=== PATIENT | female | born 1965 | race Caucasian/White ===

== ENCOUNTER 2016-08-19 13:28 | Emergency (ER) | payer OTHER, SELFPAY ==
[2016-08-19 13:28] VITALS: BMI 26.4
[2016-08-19 13:38] VITALS: BP 116/67; PULSE 60; RESP 18; TEMP 98.6; O2SAT 100
--- NOTE | 2016-08-19 13:48 | ED PDOC ---
HPI: CCC, URI, Sore Throat Time Seen by Provider: 08/19/16 13:40 Chief Complaint (Provider): Sore throat History Per: Patient History/Exam Limitations: no limitations Have you had recent travel within the past 21 days to any of the following countries: [place], [place], [place] or [place]?: No Onset/Duration Of Symptoms: Days Current Symptoms Are (Timing): Still Present Location Of Pain: Throat Sick Contacts (Context): None Associated Symptoms: Cough, Sputum Additional History Per: Patient Additional Complaint(s): The pt is a 51yo female, presents to the ED for evaluation of persistent sore throat for the past 15 days. Pt reports sore throat with associated cough. Pt reports she initially had a fever which has now resolved. Reports she started taking Zithromax 3 days ago with some relief. Pt offers no additional medical complaints. Past Medical History Reviewed: Historical Data, Nursing Documentation, Vital Signs Vital Signs: Last Vital Signs Temp 98.6 F 08/19/16 13:38 Pulse 60 08/19/16 13:38 Resp 18 08/19/16 13:38 BP 116/67 08/19/16 13:38 Pulse Ox 100 08/19/16 13:51 - Medical History PMH: Depression, HTN (Untreated) Denies: Chronic Kidney Disease - Surgical History Surgical History: - Family History Family History: States: Unknown Family Hx - Living Arrangements Living Arrangements: With Family - Home Medications Home Medications: Ambulatory Orders Medication Instructions Recorded Benzonatate [Tessalon Perle] 100 mg PO Q8 PRN #14 capsule 08/19/16 Naproxen [Naprosyn] 500 mg PO BID PRN #30 tab 08/19/16 - Allergies Allergies/Adverse Reactions: Allergies Allergy/AdvReac Type Severity Reaction Status Date / Time No Known Allergies Allergy Verified 03/06/16 12:01 Review of Systems ROS Statement: Except As Marked, All Systems Reviewed And Found Negative Constitutional: Negative for: Fever ENT: Positive for: Throat Pain Respiratory: Positive for: Cough Physical Exam - Reviewed Nursing Documentation Reviewed: Yes Vital Signs Reviewed: Yes - Physical Exam Appears: Positive for: Well, Non-toxic, No Acute Distress Head Exam: Positive for: ATRAUMATIC, NORMAL INSPECTION, NORMOCEPHALIC Skin: Positive for: Normal Color, Dry. Negative for: Rash Eye Exam: Positive for: Normal appearance ENT: Positive for: Pharyngeal Erythema (mild), Other (able to swallow saliva; no trismus or drool noted.) Neck: Positive for: Normal Cardiovascular/Chest: Positive for: Regular Rate, Rhythm Respiratory: Positive for: Normal Breath Sounds. Negative for: Respiratory Distress Gastrointestinal/Abdominal: Positive for: Normal Exam, Soft. Negative for: Organomegaly Neurologic/Psych: Positive for: Alert, Oriented - ECG O2 Sat by Pulse Oximetry: 100 (RA) Pulse Ox Interpretation: Normal - Radiology X-Ray: Interpreted by Me (Neck for soft tissue x-ray) X-Ray Interpretation: Other (no epiglottitis) - Progress ED Course And Treament: Rapid strep: negative Monospot: negative. Medical Decision Making Medical Decision Making: Time: 1345 Impression: URI Plan: -- Rapid Strep -- Infectious Mononucleosis -- XR Soft Tissues of Neck Scribe Attestation: Documented by Enid Gaona acting as a scribe for MARY Garcias Provider Attestation: All medical record entries made by the Scribe were at my direction and personally dictated by me. I have reviewed the chart and agree that the record accurately reflects my personal performance of the history, physical exam, medical decision making, and the department course for this patient. I have also personally directed, reviewed, and agree with the discharge instructions and disposition. Disposition - Clinical Impression Clinical Impression: Viral syndrome - Patient ED Disposition Is Patient to be Admitted: No - Disposition Referrals: [facility] [Outside] Disposition: Routine/Home Disposition Time: 15:11 Condition: STABLE Additional Instructions: Warm salt water gargles. Drink plenty of fluids. Prescriptions: Benzonatate [Tessalon Perle] 100 mg PO Q8 PRN #14 capsule PRN Reason: Cough Naproxen [Naprosyn] 500 mg PO BID PRN #30 tab PRN Reason: Pain Instructions: Viral Syndrome (ED) Print Language: TURKISH
--- NOTE | 2016-08-19 14:51 | RAD ---
PROCEDURE: Radiographs of the neck (soft tissue). HISTORY: sore throat COMPARISON: None. TECHNIQUE: Frontal and Lateral Radiographs of the neck, optimized for soft tissue visualization. FINDINGS: SOFT TISSUES: Unremarkable. No radiopaque foreign body seen. CERVICAL SPINE: Grossly unremarkable. OTHER FINDINGS: None. IMPRESSION: Unremarkable radiographs of the soft tissues of the neck.
== END 2016-08-19 15:20 | disposition home or self-care (01) ==
LOC: H.ER 13:28
DX: B34.9 Viral infection, unspecified (principal); I10 Essential (primary) hypertension; Z86.59 Personal history of other mental and behavioral disorders

== ENCOUNTER 2016-09-03 10:30 | Observation (INO) | payer SELFPAY ==
[2016-09-03 10:30] VITALS: BMI 26.4
[2016-09-03] MEDS ORDERED: Sodium Chloride 0.9% 1,000 ML IV STA (11:17)
[2016-09-03] MEDS ORDERED: Iohexol 240 (50 ml) PO ONE (11:17)
--- NOTE | 2016-09-03 11:21 | ED PDOC ---
HPI: Abdomen Time Seen by Provider: 09/03/16 10:57 Chief Complaint (Provider): Abdominal pain, diarrhea x 10 days History Per: Patient History/Exam Limitations: no limitations Onset/Duration Of Symptoms: Days Current Symptoms Are (Timing): Intermittent Episodes Severity: Moderate Additional Complaint(s): PT states she has been having abdominal pain for 10 days with watery diarrhea. Pt states she has no N/V and is able to eat. PT states she has epigastric pain when she first eats, then shortly after LLQ pain with watery diarrhea. Diarrhea watery without blood or mucous. Denies similar in the past. Pt states she took OTC medications from the pharmacy but it has not helped. Denies chest pain, denies SOB. Abnormal Vaginal Bleeding: No Past Medical History Reviewed: Historical Data, Nursing Documentation, Vital Signs Vital Signs: Last Vital Signs Temp 97.9 F 09/03/16 17:59 Pulse 40 L 09/03/16 17:59 Resp 16 09/03/16 17:59 BP 161/72 H 09/03/16 17:59 Pulse Ox 99 09/03/16 17:59 - Medical History PMH: Depression, HTN (Untreated) Denies: Chronic Kidney Disease - Surgical History Surgical History: - Family History Family History: States: Unknown Family Hx - Living Arrangements Living Arrangements: With Family - Social History Current smoker - smoking cessation education provided: No Alcohol: None Drugs: Denies - Home Medications Home Medications: Ambulatory Orders Medication Instructions Recorded Benzonatate [Tessalon Perle] 100 mg PO Q8 PRN #14 capsule 08/19/16 Naproxen [Naprosyn] 500 mg PO BID PRN #30 tab 08/19/16 - Allergies Allergies/Adverse Reactions: Allergies Allergy/AdvReac Type Severity Reaction Status Date / Time No Known Allergies Allergy Verified 03/06/16 12:01 Review of Systems ROS Statement: Except As Marked, All Systems Reviewed And Found Negative Gastrointestinal: Positive for: Abdominal Pain, Diarrhea. Negative for: Nausea , Vomiting Physical Exam - Reviewed Nursing Documentation Reviewed: Yes Vital Signs Reviewed: Yes - Physical Exam Appears: Positive for: Well, Non-toxic, No Acute Distress Head Exam: Positive for: ATRAUMATIC, NORMAL INSPECTION, NORMOCEPHALIC Skin: Positive for: Normal Color, Warm, DRY Eye Exam: Positive for: Normal appearance ENT: Positive for: Normal ENT Inspection Neck: Positive for: Normal, Painless ROM Cardiovascular/Chest: Positive for: Regular Rate, Rhythm Respiratory: Positive for: Normal Breath Sounds. Negative for: Accessory Muscle Use, Respiratory Distress Gastrointestinal/Abdominal: Positive for: Bowel Sounds, Soft, Tenderness ( Epigastris, LLQ), Guarding. Negative for: Normal Exam, Distended, Rebound Back: Positive for: Normal Inspection Extremity: Positive for: Normal ROM Neurologic/Psych: Positive for: Alert, Oriented - Laboratory Results Result Diagrams: 09/03/16 11:50 09/03/16 11:50 - ECG O2 Sat by Pulse Oximetry: 99 Medical Decision Making Medical Decision Making: Pt remains bradycardic in ER. Admission discussed with Family Medicine Residents. Disposition - Clinical Impression Clinical Impression: Gastritis, Bradycardia - Patient ED Disposition Is Patient to be Admitted: Yes Counseled Patient/Family Regarding: Diagnosis - Disposition Disposition Time: 18:23 Condition: FAIR - Pt Status Changed To: Hospital Disposition Of: Inpatient - Admit Certification Admit to Inpatient:: After my assessment, the patient will require hospitalization for at least two midnights. This is because of the severity of symptoms shown, intensity of services needed, and/or the medical risk in this patient being treated as an outpatient. - POA Present On Arrival: None
[2016-09-03 12:02] LABS: HEMATOCRIT 40.8 % (34.0-47.0); MEAN CELL VOLUME 86.9 fl (81.0-99.0); MEAN CORPUSCULAR HEMOGLOBIN 29.4 pg (27.0-31.0); MEAN CORPUSCULAR HGB CONC 33.9 g/dL (33.0-37.0); RED CELL DISTRIBUTION WIDTH 13.9 % (11.5-14.5); WHITE BLOOD COUNT 5.3 K/uL (4.8-10.8)
[2016-09-03 12:12] LABS: ALB/GLOB RATIO 1.5 (1.0-2.1); ALKALINE PHOSPHATASE 79 U/L (38-126); ALT/SGPT 34 U/L (9-52); AST/SGOT 22 U/L (14-36); BILIRUBIN,TOTAL 0.5 mg/dl (0.2-1.3); BLOOD UREA NITROGEN 13 mg/dl (7-17); CALCIUM 9.2 mg/dL (8.4-10.2); CARBON DIOXIDE 25 mmol/L (22-30); CHLORIDE 105 mmol/L (98-107); GFR AFRICAN-AMERICAN > 60; GLUCOSE,RANDOM 110 mg/dL (65-105); LIPASE 86 U/L (23-300); SODIUM 141 mmol/l (132-148); TOTAL PROTEIN 7.6 G/DL (6.3-8.2)
[2016-09-03 12:24] LABS: RBC URINE 4 /hpf (0-3); TRANSITIONAL EPITHIAL 1 /hpf (0-3); URINE BACTERIA RARE (<OCC); URINE BILIRUBIN NEGATIVE (NEGATIVE); URINE BLOOD SMALL (NEGATIVE); URINE COLOR YELLOW (YELLOW); URINE GLUCOSE (UA) NEG (Normal); URINE KETONE NEGATIVE (NEGATIVE); URINE LEUKOCYTE ESTERASE LARGE Leu/uL (Negative); URINE PROTEIN NEGATIVE (NEGATIVE); URINE UROBILINOGEN 0.2-1.0 mg/dL (0.2-1.0); WBC URINE 14 /hpf (0-5)
--- NOTE | 2016-09-03 17:12 | CT ---
PROCEDURE: CT abdomen and pelvis dated 09/03/2016 HISTORY: Abdominal pain LLQ, epigastric COMPARISON: No prior TECHNIQUE: Contiguous axial images of the abdomen and pelvis. Oral contrast was administered. No IV contrast given. Coronal and Sagittal reformats generated. Radiation dose: Total exam DLP = 591.53 mGy-cm. This CT exam was performed using one or more of the following dose reduction techniques: Automated exposure control, adjustment of the mA and/or kV according to patient size, and/or use of iterative reconstruction technique. FINDINGS: LOWER THORAX: No acute infiltrates. No basilar pneumothorax. Questionable tiny subpleural nodular density and/or volume averaging of pericardial fat along the inferomedial diaphragmatic surface bordering the pericardial fat best seen on axial image 19. Followup at interval could be performed to assess stability Small hiatal hernia with slight wall thickening of the distal esophagus that could be due to protrusion gastric mucosa. Esophagitis or other intrinsic/invasive wall lesion not excluded. LIVER: Liver exhibits normal size measuring approximately 17 cm in CC dimension. Mild diffuse fatty hepatic infiltration. There is a small elliptical shaped low-attenuation focus superior aspect left lobe liver near the diaphragmatic dome which measures approximately 11 mm x 6.2 mm. That could represent a small cyst or hemangioma . Followup interval could be performed to assess stability. Portal and splenic veins are opacified. No significant intrahepatic biliary ductal dilatation. GALLBLADDER AND BILE DUCTS: Gallbladder is physiologically distended. No evidence of intraluminal gallbladder calculi. PANCREAS: The pancreas appears unremarkable. SPLEEN: Spleen exhibits normal size and attenuation pattern without mass collection or calcification. ADRENALS: No adrenal lesions. KIDNEYS AND URETERS: The kidneys exhibit symmetric nephrograms. No evidence of nephrolithiasis or hydronephrosis. No obvious renal mass or collection in the BLADDER: Urinary bladder is physiologically distended. No evidence of intraluminal urinary bladder calculi. No significant wall thickening. REPRODUCTIVE: Uterus is exhibits somewhat lobulated contour consistent with uterine fibroids. Please refer to prior pelvic ultrasound 06/11/2015 for additional details. APPENDIX: Normal-appearing partially air and contrast filled appendix of best seen on axial image number [id number] BOWEL: Evaluation of the bowel is somewhat limited due to incomplete opacification. The stomach is nondistended which presumably accounts for thick-walled appearance. Possibility of gastritis not excluded. Visualized loops of small bowel exhibit normal contour and caliber. No evidence of acute mechanical small bowel obstruction with oral contrast material extending into the colon to the level of the proximal descending colon. Stool and air seen throughout the colon. A few sigmoid diverticula seen however no radiographic evidence of acute diverticulitis. PERITONEUM: No evidence of free intraperitoneal air or fluid. Small fat containing umbilical hernia. LYMPH NODES: No significant/bulky adenopathy. VASCULATURE: Unremarkable. No aortic aneurysm. BONES: Minor multilevel degenerative spondylosis of the lower thoracic and lumbar spine. No acute compression fractures nor retropulsed fragments. There is a small elliptical shaped sclerotic density within the L1 segment likely representing bone island or osteoma. Followup interval could be performed to assess stability and exclude aggressive pathology including sclerotic metastasis ; correlation with history to assess for history of primary carcinoma. OTHER FINDINGS: None. IMPRESSION: Mild fatty hepatic infiltration. Small cyst or hemangioma left lobe liver. Followup CT scan at interval could be performed to assess stability. There appears to be a few scattered colonic diverticula however no radiographic evidence of acute diverticulitis. No definitive mural wall thickening. Small fat containing umbilical hernia. Small sclerotic focus of the L1 segment likely representing bone island or osteoma however followup interval recommended to assess stability and exclude other more aggressive pathology Questionable tiny subpleural nodular density and/or volume averaging of pericardial fat along the inferomedial diaphragmatic surface bordering the pericardial fat best seen on axial image 19. Followup at interval could be performed to assess stability Uterine fibroids See above discussion for additional findings details and recommendations
[2016-09-03 18:00] VITALS: RESP 16; O2SAT 99
--- NOTE | 2016-09-03 18:37 | RAD ---
HISTORY: bradycardia COMPARISON: Comparison chest 11/17/2015. TECHNIQUE: Chest PA and lateral FINDINGS: LUNGS: No active pulmonary disease. PLEURA: No significant pleural effusion identified. No pneumothorax apparent. CARDIOVASCULAR: Normal. OSSEOUS STRUCTURES: Minor multilevel degenerative spondylosis of the thoracic spine. VISUALIZED UPPER ABDOMEN: Normal. OTHER FINDINGS: Note made of oral contrast material is seen within the colon secondary to prior contrast enhanced CT scan of the abdomen and pelvis. IMPRESSION: No active disease.
[2016-09-03 19:37] VITALS: BP 194/88; PULSE 44; TEMP 97.6
[2016-09-03] MEDS ORDERED: Sodium Chloride 0.9% 1,000 ML IV SCH (20:00)
--- NOTE | 2016-09-03 20:11 | CP.PCM.HP ---
Past Patient History - Infectious Disease Hx of Infectious Diseases: None - Past Medical History & Family History Past Medical History?: No - Past Social History Alcohol: None Drugs: Denies - CARDIAC Hx Hypertension: Yes (Untreated) - PULMONARY Hx Respiratory Disorders: No - NEUROLOGICAL Hx Neurological Disorder: No - HEENT Hx HEENT Problems: No - RENAL Hx Chronic Kidney Disease: No - ENDOCRINE/METABOLIC Hx Endocrine Disorders: No - HEMATOLOGICAL/ONCOLOGICAL Hx Blood Disorders: No - INTEGUMENTARY Hx Dermatological Problems: No - MUSCULOSKELETAL/RHEUMATOLOGICAL Hx Musculoskeletal Disorders: Yes Hx Back Pain: Yes - GASTROINTESTINAL Hx Gastrointestinal Disorders: No - GENITOURINARY/GYNECOLOGICAL Hx Genitourinary Disorders: No - PSYCHIATRIC Hx Depression: Yes - SURGICAL HISTORY Hx Surgeries: Yes Hx Section: Yes - ANESTHESIA Hx Anesthesia: Yes Hx Anesthesia Reactions: No Hx Malignant Hyperthermia: No Meds Allergies/Adverse Reactions: Allergies Allergy/AdvReac Type Severity Reaction Status Date / Time No Known Allergies Allergy Verified 03/06/16 12:01 Results - Vital Signs Recent Vital Signs: Last Vital Signs Temp 97.6 F 09/03/16 19:33 Pulse 44 L 09/03/16 19:33 Resp 16 09/03/16 19:33 BP 194/88 H 09/03/16 19:33 Pulse Ox 99 09/03/16 19:33 - Labs Result Diagrams: 09/03/16 11:50 09/03/16 11:50
--- NOTE | 2016-09-04 19:22 | CARD ---
APPROVED REPORT EKG Measurement Heart [id number] [id number] <Conclusion> Marked sinus bradycardia Abnormal ECG
== END 2016-09-03 20:18 | disposition left against medical advice (07) ==
LOC: H.ER 10:30 → UNDOADMOB 18:13 → H.EROBSV 18:13 → H.ERHOLD 19:35 → H.EROBSV 19:35
PROVIDERS: ADMIT Family Medicine Geriatric Medicine; ATTEND Family Medicine Geriatric Medicine
DX: R10.9 Unspecified abdominal pain (principal); I10 Essential (primary) hypertension; K29.70 Gastritis, unspecified, without bleeding; F32.9 Major depressive disorder, single episode, unspecified; R00.1 Bradycardia, unspecified
CPT/HCPCS: 71020; 74177; 80053; 81003; 81025; 83690; 84484; 85027; 87086; 93005; 96360; 99285; G0378; J7040; Q9966

== ENCOUNTER 2017-07-01 07:08 | Emergency (ER) | payer MEDICAID, OTHER ==
[2017-07-01 07:20] VITALS: TEMP 99
[2017-07-01 07:21] VITALS: BMI 25.4
--- NOTE | 2017-07-01 07:58 | ED PDOC ---
HPI: Influenza Time Seen by Provider: 07/01/17 07:33 Chief Complaint: Cough, Cold, Congestion Chief Complaint (Provider): Cough History Per: Patient Additional complaint(s):: Pt reports cough productive of yellow sputum X 1 week, associated with sore throat and runny nose. Denies fever, CP, SOB, nausea, vomiting. Past Medical History Reviewed: Nursing Documentation, Vital Signs Vital Signs: Last Vital Signs Temp 99 F 07/01/17 07:20 Pulse 56 L 07/01/17 07:20 Resp BP 150/85 07/01/17 07:20 Pulse Ox 98 07/01/17 07:31 - Medical History PMH: Depression, HTN (Untreated) Denies: Chronic Kidney Disease - Surgical History Surgical History: - Family History Family History: States: Unknown Family Hx - Social History Current smoker - smoking cessation education provided: No Alcohol: None - Home Medications Home Medications: Ambulatory Orders Medication Instructions Recorded Benzonatate [Tessalon Perle] 100 mg PO Q8 PRN #14 capsule 08/19/16 Naproxen [Naprosyn] 500 mg PO BID PRN #30 tab 08/19/16 Azithromycin [Zithromax] 500 mg PO DAILY #3 tab 07/01/17 Loratadine [Claritin] 10 mg PO DAILY #5 tab 07/01/17 - Allergies Allergies/Adverse Reactions: Allergies Allergy/AdvReac Type Severity Reaction Status Date / Time No Known Allergies Allergy Verified 03/06/16 12:01 Review of Systems Constitutional: Negative for: Fever, Chills ENT: Positive for: Nose Congestion, Throat Pain. Negative for: Ear Pain, Throat Swelling Cardiovascular: Negative for: Chest Pain, Palpitations Respiratory: Positive for: Cough, Sputum. Negative for: Shortness of Breath, Hemoptysis, SOB with Exertion, Pleuritic Pain, Wheezing Gastrointestinal: Negative for: Nausea, Vomiting, Abdominal Pain, Diarrhea Genitourinary Female: Negative for: Dysuria, Hematuria Musculoskeletal: Negative for: Back Pain Skin: Negative for: Rash, Lesions Neurological: Negative for: Headache, Dizziness Physical Exam - Reviewed Nursing Documentation Reviewed: Yes Vital Signs Reviewed: Yes - Physical Exam Appears: Positive for: Well, No Acute Distress (Speaking full sentences) Skin: Positive for: Normal Color, Warm, Dry Eye Exam: Positive for: Normal appearance, EOMI, PERRL ENT: Positive for: Pharynx Is (Clear), Nasal Congestion. Negative for: Sinus Pain/Drainage, Pharyngeal Erythema, Tonsillar Exudate, Tonsillar Swelling Neck: Positive for: Normal, Painless ROM, Supple Cardiovascular/Chest: Positive for: Regular Rate, Rhythm Respiratory: Positive for: Normal Breath Sounds. Negative for: Rales, Rhonchi, Wheezing Gastrointestinal/Abdominal: Positive for: Normal Exam Extremity: Positive for: Normal ROM Neurologic/Psych: Positive for: Alert, Oriented Medical Decision Making Medical Decision Makin yo female with sore throat, runny nose and productive cough. - Rapid strep - CXR - ECG O2 Sat by Pulse Oximetry: 98 Disposition - Clinical Impression Clinical Impression: URI (upper respiratory infection) - Disposition Referrals: [facility] [Outside] Disposition: Routine/Home Disposition Time: 10:24 Condition: STABLE Prescriptions: Azithromycin [Zithromax] 500 mg PO DAILY #3 tab Loratadine [Claritin] 10 mg PO DAILY #5 tab Instructions: Bacterial Upper Respiratory Infection, Adult Forms: [facility] (Lao) Print Language: TURKMEN
--- NOTE | 2017-07-01 09:30 | RAD ---
HISTORY: Cough COMPARISON: Chest radiograph dated 09/03/2016. TECHNIQUE: Chest PA and lateral FINDINGS: LUNGS: No active pulmonary disease. PLEURA: No significant pleural effusion identified. No pneumothorax apparent. CARDIOVASCULAR: Normal. OSSEOUS STRUCTURES: Unchanged. VISUALIZED UPPER ABDOMEN: Normal. OTHER FINDINGS: None. IMPRESSION: No active disease.
[2017-07-01 10:40] VITALS: BP 137/86; PULSE 78; RESP 14
[2017-07-09 13:46] VITALS: O2SAT 98
== END 2017-07-01 10:40 | disposition home or self-care (01) ==
LOC: H.ER 07:08
DX: J06.9 Acute upper respiratory infection, unspecified (principal); I10 Essential (primary) hypertension; Z86.59 Personal history of other mental and behavioral disorders